=== PATIENT | female | born 1965 | race Two or more races ===

== ENCOUNTER 2020-06-23 11:08 | Outpatient (CLI) | payer OTHER | END 2020-06-23 11:22 | disposition home or self-care (01) | LOC: TOM 11:08 | PROVIDERS: ATTEND Internal Medicine Rheumatology | DX: R51.9 Headache, unspecified (principal) ==

== ENCOUNTER 2020-09-14 08:38 | Outpatient (CLI) | payer OTHER | END 2020-09-14 08:48 | disposition home or self-care (01) | LOC: MRI 08:38 | DX: G43.911 Migraine, unspecified, intractable, with status migrainosus (principal) | CPT/HCPCS: 70546; 70551; A9575 ==

== ENCOUNTER 2021-07-22 10:27 | Outpatient (CLI) | payer OTHER | END 2021-07-22 10:40 | disposition home or self-care (01) | LOC: RAD 10:27 | PROVIDERS: ATTEND Internal Medicine Rheumatology | DX: M06.09 Rheumatoid arthritis without rheumatoid factor, multiple sites (principal); M54.2 Cervicalgia; M46.1 Sacroiliitis, not elsewhere classified; M47.812 Spondylosis without myelopathy or radiculopathy, cervical region ==

== ENCOUNTER 2021-07-26 07:52 | Outpatient (CLI) | payer OTHER | END 2021-07-26 07:54 | disposition home or self-care (01) | LOC: MAMO-SONO 07:52 | PROVIDERS: ATTEND Internal Medicine Gastroenterology | DX: R10.84 Generalized abdominal pain (principal); N63.41 Unspecified lump in right breast, subareolar ==

== ENCOUNTER 2022-03-21 09:00 | Outpatient (CLI) | payer OTHER ==
[~2022-03-21 09:00] MED LIST: BENZONATATE200 M1 PO; IPRAT-ALBUT 0.5-3 ML IH; ZITHROMAX500 MG PO
== END 2022-03-21 09:09 | disposition home or self-care (01) ==
LOC: MRI 09:00
PROVIDERS: ATTEND Physical Medicine & Rehabilitation
DX: M54.2 Cervicalgia (principal); M54.12 Radiculopathy, cervical region; M06.09 Rheumatoid arthritis without rheumatoid factor, multiple sites
CPT/HCPCS: 72141

== ENCOUNTER 2022-06-08 10:19 | Outpatient (CLI) | payer OTHER | END 2022-06-08 10:22 | disposition home or self-care (01) | LOC: RAD 10:19 | PROVIDERS: ATTEND Internal Medicine Cardiovascular Disease | DX: J44.9 Chronic obstructive pulmonary disease, unspecified (principal) ==

== ENCOUNTER 2022-10-11 12:21 | Outpatient (CLI) | payer OTHER | END 2022-10-11 12:26 | disposition home or self-care (01) | LOC: RAD 12:21 | PROVIDERS: ATTEND Internal Medicine Cardiovascular Disease | DX: M12.9 Arthropathy, unspecified (principal); M46.48 Discitis, unspecified, sacral and sacrococcygeal region ==

== ENCOUNTER 2023-03-20 09:46 | Outpatient (CLI) | payer OTHER | END 2023-03-20 09:51 | disposition home or self-care (01) | LOC: MAMO-SONO 09:46 | PROVIDERS: ATTEND Internal Medicine Cardiovascular Disease | DX: N60.12 Diffuse cystic mastopathy of left breast (principal); Z12.31 Encounter for screening mammogram for malignant neoplasm of breast ==

== ENCOUNTER 2023-07-11 10:51 | Outpatient (CLI) | payer OTHER | END 2023-07-11 10:54 | disposition home or self-care (01) | LOC: RAD 10:51 | PROVIDERS: ATTEND Internal Medicine Cardiovascular Disease | DX: M12.9 Arthropathy, unspecified (principal); J44.9 Chronic obstructive pulmonary disease, unspecified ==

== ENCOUNTER 2024-01-14 12:14 | Outpatient (CLI) | payer OTHER | END 2024-01-14 12:18 | disposition home or self-care (01) | LOC: RAD 12:14 | PROVIDERS: ATTEND Internal Medicine Rheumatology | DX: M06.09 Rheumatoid arthritis without rheumatoid factor, multiple sites (principal) ==

== ENCOUNTER 2024-01-17 10:21 | Outpatient (CLI) | payer OTHER | END 2024-01-17 10:26 | disposition home or self-care (01) | LOC: SONOGRAMA 10:21 | PROVIDERS: ATTEND Internal Medicine Rheumatology | DX: M06.09 Rheumatoid arthritis without rheumatoid factor, multiple sites (principal) ==

== ENCOUNTER 2024-02-15 13:00 | Outpatient (CLI) | payer OTHER | END 2024-02-15 13:02 | disposition home or self-care (01) | LOC: NUCLEAR 13:00 | PROVIDERS: ATTEND Physical Medicine & Rehabilitation | DX: M81.0 Age-related osteoporosis without current pathological fracture (principal) ==

== ENCOUNTER 2024-08-28 13:44 | Outpatient (CLI) | payer OTHER | END 2024-08-28 13:47 | disposition home or self-care (01) | LOC: MAMO-SONO 13:44 | PROVIDERS: ATTEND Internal Medicine Cardiovascular Disease | DX: N60.11 Diffuse cystic mastopathy of right breast (principal); N60.12 Diffuse cystic mastopathy of left breast; Z12.31 Encounter for screening mammogram for malignant neoplasm of breast ==

== ENCOUNTER 2024-11-11 09:10 | Outpatient (CLI) | payer OTHER | END 2024-11-11 09:14 | disposition home or self-care (01) | LOC: MRI 09:10 | PROVIDERS: ATTEND Neuromusculoskeletal Medicine & OMM | DX: M50.20 Other cervical disc displacement, unspecified cervical region (principal); R41.3 Other amnesia; D49.6 Neoplasm of unspecified behavior of brain; G40.909 Epilepsy, unspecified, not intractable, without status epilepticus | CPT/HCPCS: 70553; 72141; Q9965 ==

== ENCOUNTER 2024-11-25 08:44 | Outpatient (CLI) | payer OTHER | END 2024-11-25 08:45 | disposition home or self-care (01) | LOC: NUCLEAR 08:44 | PROVIDERS: ATTEND Internal Medicine Cardiovascular Disease | DX: I10 Essential (primary) hypertension (principal); R07.9 Chest pain, unspecified ==

== ENCOUNTER 2024-11-26 08:59 | Outpatient (CLI) | payer OTHER | END 2024-11-26 09:00 | disposition home or self-care (01) | LOC: NUCLEAR 08:59 | PROVIDERS: ATTEND Internal Medicine Cardiovascular Disease | DX: I10 Essential (primary) hypertension (principal) ==

== ENCOUNTER 2024-12-18 08:47 | Outpatient (CLI) | payer OTHER | END 2024-12-18 08:52 | disposition home or self-care (01) | LOC: SONOGRAMA 08:47 | PROVIDERS: ATTEND Neuromusculoskeletal Medicine & OMM | DX: E04.1 Nontoxic single thyroid nodule (principal) ==